=== PATIENT | female | born 1970 | race Caucasian/White ===

== ENCOUNTER 2017-02-21 15:09 | Emergency (ER) | payer OTHER ==
[2017-02-21 15:38] VITALS: TEMP 99.1; BMI 22.4
--- NOTE | 2017-02-21 16:35 | PDOC ---
History of Present Illness <ZavalaMelody - Last Filed: 02/21/17 17:42> - General History Source: Patient Exam Limitations: No Limitations - History of Present Illness Initial Comments: 02/21/17 17:17 The patient is a 47 year old female, with a significant past medical history of hypertension, tachycardia, who presents to the emergency department with upper back pain and rash s/p mechanical fall approximately 2 weeks ago. The patient reports she was walking outside in the cold when she felt her legs give out, and she landed on her knees and left hand. Since then, the patient reports she developed left upper back pain radiating under the left breast 1 week ago. She describes her pain as sharp and tingling with associated numbness of her left breast. Patient reports associated rash in her left scapula for 4 days. She reports taking a muscle relaxer for her pain with minimal relief. Patient states she took Benadryl for her rash yesterday and has not been feeling herself since. Patient endorses a similar rash in her back and her hands after returning to [place] in August of 2016. Patient states in the past her rash resolved with Benadryl, but not in this instance. Prior to presentation, patient endorses mild chest pain, which she relates to concern of her back pain , but denies any shortness of breath, diaphoresis, or palpitations. She denies any recent illness, fever, chills, cough, headache, or dizziness. She denies any nausea, vomiting, abdominal pain, diarrhea, or constipation. She denies any dysuria, hematuria, frequency, or urgency. Patient reports she is visiting from [place] for the past month. Allergies: Sulfa(Sulfonamide antibiotics) Past Surgical History: Hysterectomy, Bilateral Salpingectomy, Section Social History: Non smoker. No ETOH or recreational drug use. Family History: Breast Cancer: Aunt and Maternal Grandmother; Mother: Uterine cancer. <Zenaida Salas - Last Filed: 02/21/17 19:51> - General Chief Complaint: Pain Stated Complaint: BACK PAIN Time Seen by Provider: 02/21/17 16:27 Past History - Past Medical History Cardiac Disorders: Yes (TACHYCARDIA) CVA: No COPD: No HTN: Yes - Suicide/Smoking/Psychosocial Hx Smoking History: Never smoked Hx Alcohol Use: No Drug/Substance Use Hx: No Substance Use Type: None <Melody Zavala - Last Filed: 02/21/17 17:42> <Zenaida Salas - Last Filed: 02/21/17 19:51> - Past Medical History Allergies/Adverse Reactions: Allergies Allergy/AdvReac Type Severity Reaction Status Date / Time Fish Containing Products Allergy Rash Verified 02/21/17 15:38 Sulfa (Sulfonamide Allergy Rash Verified 02/21/17 15:38 Antibiotics) Home Medications: Ambulatory Orders Gabapentin 300 mg PO ASDIR #90 capsule 02/21/17 Valacyclovir HCl [Valtrex -] 1,000 mg PO TID #21 tablet 02/21/17 Review of Systems - Review of Systems Able to Perform ROS?: Yes Comments:: 02/21/17 17:18 GENERAL/CONSTITUTIONAL: No fever or chills. No weakness. HEAD, EYES, EARS, NOSE AND THROAT: No change in vision. No ear pain or discharge. No sore throat. CARDIOVASCULAR: Yes chest pain. No shortness of breath. RESPIRATORY: No cough, wheezing, or hemoptysis. GASTROINTESTINAL: No nausea, vomiting, diarrhea or constipation. GENITOURINARY: No dysuria, frequency, or change in urination. MUSCULOSKELETAL: Yes left upper back pain, left breast pain/numbness. No joint or muscle swelling. No neck pain. SKIN: Yes left scapula rash and bilateral hand rash. NEUROLOGIC: No headache, vertigo, loss of consciousness, or change in strength/ sensation. ENDOCRINE: No increased thirst. No abnormal weight change. HEMATOLOGIC/LYMPHATIC: No anemia, easy bleeding, or history of blood clots. ALLERGIC/IMMUNOLOGIC: Yes skin allergy. <Zenaida Salas - Last Filed: 02/21/17 19:51> *Physical Exam - Vital Signs Last Vital Signs Temp Pulse Resp BP Pulse Ox 99.1 F 120 H 20 150/99 97 02/21/17 15:33 02/21/17 15:33 02/21/17 15:33 02/21/17 15:33 02/21/17 15:33 <Melody Zavala - Last Filed: 02/21/17 17:42> - Vital Signs Last Vital Signs Temp Pulse Resp BP Pulse Ox 99.1 F 120 H 20 150/99 97 02/21/17 15:33 02/21/17 15:33 02/21/17 15:33 02/21/17 15:33 02/21/17 15:33 - Physical Exam Comments: 02/21/17 18:27 GENERAL: Awake, alert, and fully oriented, in no acute distress HEAD: No signs of trauma EYES: PERRLA, EOMI, sclera anicteric, conjunctiva clear ENT: Auricles normal inspection, hearing grossly normal, nares patent, oropharynx clear without exudates. Moist mucosa NECK: Normal ROM, supple, no lymphadenopathy, JVD, or masses LUNGS: Breath sounds equal, clear to auscultation bilaterally. No wheezes, and no crackles HEART: Tachycardic. Regular rhythm, normal S1 and S2, no murmurs, rubs or gallops ABDOMEN: Soft, nontender, normoactive bowel sounds. No guarding, no rebound. No masses EXTREMITIES: Normal range of motion, no edema. No clubbing or cyanosis. No cords, erythema, or tenderness NEUROLOGICAL: Cranial nerves II through XII grossly intact. Normal speech, normal gait SKIN: Multiple well circumscribed erythematous lesions with vesicles with a dermatomal distribution to T4. Remainder of skin warm, dry, normal turgor. <Zenaida Salas - Last Filed: 02/21/17 19:51> ED Treatment Course - LABORATORY CBC & Chemistry Diagram: 02/21/17 17:17 02/21/17 17:17 <Melody Zavala - Last Filed: 02/21/17 17:42> - LABORATORY CBC & Chemistry Diagram: 02/21/17 17:17 02/21/17 17:17 <Zenaida Salas - Last Filed: 02/21/17 19:51> *DC/Admit/Observation/Transfer - Discharge Dispostion Admit: No <Melody Zavala - Last Filed: 02/21/17 17:42> - Attestations Scribe Attestion: 02/21/17 17:20 Documentation prepared by Zenaida Salas, acting as medical office coordinator for Melody Zavala MD. <Zenaida Salas - Last Filed: 02/21/17 19:51> Diagnosis at time of Disposition: Zoster Qualifiers: Herpes zoster complications: without complications Qualified Code(s): B02.9 - Zoster without complications - Discharge Dispostion Disposition: HOME Condition at time of disposition: Stable - Prescriptions Prescriptions: Gabapentin 300 mg PO ASDIR #90 capsule Valacyclovir HCl [Valtrex -] 1,000 mg PO TID #21 tablet - Patient Instructions Printed Discharge Instructions: DI for Shingles Print Language: TELUGU
[2017-02-21 17:26] LABS: BASO % 0.5 % (0-2.0); EOS % 0.6 % (0-4.5); HEMATOCRIT 38.6 % (32.4-45.2); HEMOGLOBIN 13.3 GM/dL (10.7-15.3); LYMPH % 16.3 % (8-40); MCH 29.3 pg (25.7-33.7); MCHC 34.4 g/dl (32.0-36.0); MEAN CELL VOLUME 85.3 fl (80-96); MONO % 8.1 % (3.8-10.2); NEUT % 74.5 % (42.8-82.8); PLATELET COUNT 224 K/MM3 (134-434); RBC 4.53 M/mm3 (3.60-5.2); WHITE BLOOD COUNT 8.1 K/mm3 (4.0-10.0)
[2017-02-21 17:38] LABS: INR 1.09 (0.82-1.09); PROTHROMBIN TIME (PATIENT) 12.3 SEC (9.98-11.88)
[2017-02-21 17:56] LABS: ANION GAP 5 (8-16); BILIRUBIN,TOTAL 0.3 mg/dL (0.2-1.0); BLOOD UREA NITROGEN 7 mg/dL (7-18); CALCIUM 8.6 mg/dL (8.5-10.1); CHLORIDE 107 mmol/L (98-107); CO2 28 mmol/L (21-32); CREATININE 0.7 mg/dL (0.55-1.02); GLUCOSE,RANDOM 113 mg/dL (74-106); SGOT/AST 14 U/L (15-37); SGPT/ALT 17 U/L (12-78); SODIUM 140 mmol/L (136-145); TOT PROT 7.9 g/dl (6.4-8.2)
[2017-02-21 17:59] LABS: ALK PHOS 89 U/L (45-117)
[2017-02-21 18:29] VITALS: BP 144/78; PULSE 98
--- NOTE | 2017-02-23 11:43 | EKG ---
Test Reason : Blood Pressure : / mmHG Vent. Rate : 078 BPM Atrial Rate : 078 BPM P-R Int : 172 ms QRS Dur : 086 ms QT Int : 370 ms P-R-T Axes : 072 073 068 degrees QTc Int : 421 ms NORMAL SINUS RHYTHM NORMAL ECG NO PREVIOUS ECGS AVAILABLE Confirmed by MONTEZ WADE MD ([id number]) on 02/23/2017 11:43:25 AM Referred By: Confirmed By:MONTEZ WADE MD
== END 2017-02-21 18:29 | disposition home or self-care (01) ==
LOC: JER 15:09
DX: B02.9 Zoster without complications (principal)
CPT/HCPCS: 36415; 71045-TC; 80053; 82550; 84484; 85025; 85610; 93005; 93010; 99283-25